=== PATIENT | female | born 1975 | race Caucasian/White ===

== ENCOUNTER 2022-07-16 09:46 | Emergency (ER) | payer BC, OTHER ==
[2022-07-16] MEDS ORDERED: Acetaminophen/HYDROcodone 325-5 MG Tab PO ONE (12:54)
== END 2022-07-16 13:05 | disposition home or self-care (01) ==
LOC: JD.ED 09:46
DX: S82.892A Other fracture of left lower leg, initial encounter for closed fracture (principal); W00.0XXA Fall on same level due to ice and snow, initial encounter
CPT/HCPCS: 73610; 99283; A9270; 99282

== ENCOUNTER 2022-07-27 09:20 | Day surgery (SDC) | payer BC ==
[~2022-07-27 09:20] MED LIST: Dexamethasone 4 MG/ML 5 ML MDV ONE; Dexmedetomidine 200 MCG/2 ML SDV ONE; EPINEPHrine 1 MG/ML SDV ONE; Lactated Ringers 1,000 ML IV SCH; Lidocaine 1%/Sod Bicarbonate in NS 8.4% 1 ML Syringe IDERM PRN; Ropivacaine 0.5% 5 MG/ML 30 ML SDV ONE; Sodium Chloride 0.9% 10 ML Syringe FLUSH PRN; Sodium Chloride 0.9% 10 ML Syringe FLUSH SCH
[2022-07-27] MEDS ORDERED: fentaNYL 100 MCG/2 ML SDV ONE ×2 (10:03→10:46)
[2022-07-27] MEDS ORDERED: Midazolam 1 MG/ML 2 ML SDV ONE ×2 (10:03→10:53)
[2022-07-27] MEDS ORDERED: Lidocaine 1% 5 ML VIAL ONE ×2 (10:03→10:46)
[2022-07-27] MEDS ORDERED: Ondansetron 4 MG/2 ML SDV ONE (10:46)
[2022-07-27] MEDS ORDERED: Propofol 200 MG/20 ML SDV ONE (10:46)
[2022-07-27] MEDS ORDERED: Rocuronium 50 MG/5 ML Vial ONE (11:37)
[2022-07-27] MEDS ORDERED: Dexamethasone 4 MG/ML 5 ML MDV ONE (11:43)
[2022-07-27] MEDS ORDERED: ceFAZolin 2 GM Vial ONE (11:47)
[2022-07-27] MEDS ORDERED: HYDROmorphone 0.5 MG/0.5 ML Syringe IVPUSH PRN (11:51)
[2022-07-27] MEDS ORDERED: fentaNYL 100 MCG/2 ML SDV IVPUSH PRN (11:51)
[2022-07-27] MEDS ORDERED: Ondansetron 4 MG/2 ML SDV IVPUSH PRN (11:51)
[2022-07-27] MEDS ORDERED: Lactated Ringers 1,000 ML ONE (11:53)
[2022-07-27] MEDS ORDERED: Neostigmine Methylsulfate 10 MG/10 ML MDV ONE (12:13)
[2022-07-27] MEDS ORDERED: Ketorolac 30 MG/ML SDV ONE (12:25)
[2022-07-27] MEDS ORDERED: Acetaminophen/HYDROcodone 325-5 MG Tab PO PRN (13:59)
== END 2022-07-27 14:40 | disposition home or self-care (01) ==
LOC: JD.SDS 09:20
PROVIDERS: ATTEND Orthopaedic Surgery
DX: S93.432A Sprain of tibiofibular ligament of left ankle, initial encounter (principal); F41.9 Anxiety disorder, unspecified; F32.A Depression, unspecified; Z87.891 Personal history of nicotine dependence; Z79.899 Other long term (current) drug therapy; W00.9XXA Unspecified fall due to ice and snow, initial encounter
CPT/HCPCS: 27829; 64445; 76000; C1713; J0171; J0690; J1100; J1885; J2250; J2405; J2704; J2710; J2795; J3010; J7120; 01480; 64447; J3490

== ENCOUNTER 2023-03-28 06:40 | Inpatient (IN) | payer BC ==
[~2023-03-28 06:40] MED LIST changes: -Dexamethasone 4 MG/ML 5 ML MDV ONE; -Dexmedetomidine 200 MCG/2 ML SDV ONE; -EPINEPHrine 1 MG/ML SDV ONE; -Lactated Ringers 1,000 ML IV SCH; -Lidocaine 1%/Sod Bicarbonate in NS 8.4% 1 ML Syringe IDERM PRN; -Ropivacaine 0.5% 5 MG/ML 30 ML SDV ONE; -Sodium Chloride 0.9% 10 ML Syringe FLUSH SCH
[2023-03-28] MEDS: Lactated Ringers 1,000 ML IV SCH ×2 (06:45→11:15)
[2023-03-28 07:01] LABS: BASOPHILS PERCENT AUTO 0.5 % (0.0-1.0); EOSINOPHILS ABSOLUTE AUTO 0.2 K/mm3 (0.0-0.4); EOSINOPHILS PERCENT AUTO 2.1 % (0.0-6.0); HEMATOCRIT 37.8 % (37.0-47.0); HEMOGLOBIN 12.5 gm/dl (12.0-16.0); IMMATURE GRAN ABSOLUTE AUTO 0.01 K/mm3 (0.00-0.05); IMMATURE GRAN PERCENT AUTO 0.1 % (0.0-0.4); LYMPHOCYTES ABSOLUTE AUTO 2.5 K/mm3 (1.0-4.8); MEAN CORPUSCULAR HGB CONC 33.1 g/dl (32.0-36.0); MEAN CORPUSCULAR VOLUME 90.6 fl (83.0-99.0); MEAN PLATELET VOLUME 10.7 fl (9.4-12.3); MONOCYTES ABSOLUTE AUTO 0.6 K/mm3 (0.0-0.8); MONOCYTES PERCENT AUTO 7.1 % (0.0-8.0); NEUTROPHILS ABSOLUTE AUTO 4.5 K/mm3 (1.8-7.7); NEUTROPHILS PERCENT AUTO 58.2 % (41.0-71.0); PLATELET COUNT,PLT 222 K/mm3 (150-400); RED BLOOD CELL COUNT 4.17 M/mm3 (4.10-5.30); WHITE BLOOD CELL COUNT,WBC 7.72 K/mm3 (3.9-11.3)
[2023-03-28] MEDS ORDERED: Rocuronium 50 MG/5 ML Vial ONE (07:17)
[2023-03-28] MEDS ORDERED: Succinylcholine 200 MG/10 ML MDV ONE (07:17)
[2023-03-28] MEDS ORDERED: Lidocaine 1% 8 ML ONE (07:17)
[2023-03-28] MEDS ORDERED: Midazolam 1 MG/ML 2 ML SDV ONE (07:17)
[2023-03-28] MEDS ORDERED: fentaNYL 250 MCG/5 ML SDV ONE (07:18)
[2023-03-28] MEDS ORDERED: Propofol 200 MG/20 ML SDV ONE (07:18)
[2023-03-28] MEDS ORDERED: EPINEPHrine 1 MG/ML SDV ONE (07:19)
[2023-03-28] MEDS ORDERED: Bupivacaine 0.25% 10 ML SDV ONE (07:20)
[2023-03-28] MEDS ORDERED: Bupivacaine 0.5% 30 ML SDV ONE (07:20)
[2023-03-28 07:24] LABS: ANION GAP 14.7 (5-15); BUN/CREATININE RATIO 16.3 (14-18); CALCIUM 9.1 mg/dL (8.5-10.1); CREATININE 0.8 mg/dL (0.55-1.02); EST CRCL DRUG DOSING (CG) 64.89 mL/min; POTASSIUM,K 3.7 mEq/L (3.5-5.1)
[2023-03-28] MEDS ORDERED: ceFAZolin 2 GM Vial ONE (07:28)
[2023-03-28] MEDS ORDERED: dexmedeTOMIDine HCl 200 MCG/2 ML SDV ONE (07:53)
[2023-03-28] MEDS ORDERED: Metoclopramide 10 MG/2 ML SDV ONE (08:22)
[2023-03-28] MEDS ORDERED: Ketorolac 30 MG/ML SDV ONE (08:22)
[2023-03-28] MEDS ORDERED: Ondansetron 4 MG/2 ML SDV ONE (08:22)
[2023-03-28] MEDS ORDERED: HYDROmorphone 0.5 MG/0.5 ML Syringe IVPUSH PRN (08:40)
[2023-03-28] MEDS ORDERED: fentaNYL 100 MCG/2 ML SDV IVPUSH PRN (08:40)
[2023-03-28] MEDS ORDERED: Ketamine 500 mg/10 ML MDV ONE (08:49)
[2023-03-28] MEDS ORDERED: Dexamethasone 4 MG/ML 5 ML MDV ONE (08:56)
[2023-03-28] MEDS ORDERED: Tranexamic Acid 1,000 MG/10 ML Vial ONE (09:39)
[2023-03-28] MEDS ORDERED: Vasopressin 20 UNIT/ML 10 ML MDV ONE (09:42)
[2023-03-28] MEDS ORDERED: Lactated Ringers 1,000 ML ONE (09:56)
[2023-03-28] MEDS ORDERED: Phenylephrine 1% 10 MG/ML SDV ONE (10:08)
[2023-03-28] MEDS ORDERED: Sugammadex Sodium 200 MG/2 ML VIAL ONE (10:43)
[2023-03-28] MEDS ORDERED: HYDROmorphone 0.5 MG/0.5 ML Syringe ONE ×2 (10:48→10:50)
[2023-03-28] MEDS ORDERED: Acetaminophen/oxyCODONE 325-5 MG Tab PO PRN (10:53)
[2023-03-28] MEDS ORDERED: Ondansetron 4 MG/2 ML SDV IVPUSH PRN (10:53)
[2023-03-28] MEDS ORDERED: Lactated Ringers 1,000 ML IV SCH (11:00)
[2023-03-28] MEDS: Acetaminophen/oxyCODONE 325-5 MG Tab PO PRN ×3 (14:03→22:41)
[2023-03-28] MEDS: Ketorolac 30 MG/ML SDV IVPUSH SCH (18:19)
[2023-03-28] MEDS: Sodium Chloride 0.9% 10 ML Syringe FLUSH SCH ×3 (19:58→22:40)
[2023-03-29] MEDS: Ketorolac 30 MG/ML SDV IVPUSH SCH ×2 (04:00→12:29)
[2023-03-29] MEDS: Acetaminophen/oxyCODONE 325-5 MG Tab PO PRN (04:36)
[2023-03-29 05:14] LABS: ANION GAP 12.9 (5-15); BUN/CREATININE RATIO 12.2 (14-18); CALCIUM 9.2 mg/dL (8.5-10.1); CREATININE 0.9 mg/dL (0.55-1.02); EST CRCL DRUG DOSING (CG) 57.68 mL/min; POTASSIUM,K 3.9 mEq/L (3.5-5.1)
[2023-03-29 05:32] LABS: HEMATOCRIT 31.3 % (37.0-47.0); HEMOGLOBIN 10.3 gm/dl (12.0-16.0); MEAN CORPUSCULAR HEMOGLOBIN 29.2 pg (28.0-32.0); MEAN CORPUSCULAR HGB CONC 32.9 g/dl (32.0-36.0); MEAN CORPUSCULAR VOLUME 88.7 fl (83.0-99.0); MEAN PLATELET VOLUME 11.7 fl (9.4-12.3); PLATELET COUNT,PLT 237 K/mm3 (150-400); RED BLOOD CELL COUNT 3.53 M/mm3 (4.10-5.30); WHITE BLOOD CELL COUNT,WBC 12.67 K/mm3 (3.9-11.3)
== END 2023-03-29 13:11 | disposition home or self-care (01) | DRG 519 ==
LOC: JD.SDS 06:40 → JD.OB 10:54
PROVIDERS: ADMIT Obstetrics & Gynecology; ATTEND Obstetrics & Gynecology
PROC: 0UT90ZZ Resection of Uterus, Open Approach (ICD-10-PCS; principal; 2023-03-28 08:15)
PROC: 0UJD4ZZ Inspection of Uterus and Cervix, Percutaneous Endoscopic Approach (ICD-10-PCS; principal; 2023-03-28 08:15)
PROC: 0UT70ZZ Resection of Bilateral Fallopian Tubes, Open Approach (ICD-10-PCS; principal; 2023-03-28 08:15)
DX: D25.9 Leiomyoma of uterus, unspecified (principal); N93.9 Abnormal uterine and vaginal bleeding, unspecified; F41.9 Anxiety disorder, unspecified; E66.9 Obesity, unspecified; F32.A Depression, unspecified; Z98.890 Other specified postprocedural states; Z87.891 Personal history of nicotine dependence; Z79.899 Other long term (current) drug therapy; Z98.49 Cataract extraction status, unspecified eye; Z68.41 Body mass index [BMI] 40.0-44.9, adult; Z53.31 Laparoscopic surgical procedure converted to open procedure
CPT/HCPCS: 36415; 80048; 85025; 85027; 86850; 86900; 86901; A9270-GY; J0171; J0330; J0690; J1100; J1170; J1885; J2250; J2371; J2405; J2704; J2765; J3010; J3490; J7120